=== PATIENT | male | born 1950 | race Caucasian/White ===

== ENCOUNTER → 2020-01-13 12:48 | Outpatient (CLI) | payer OTHER | END | disposition home or self-care (01) | LOC: LAB 12:48 | PROVIDERS: ATTEND Radiology Diagnostic Radiology | DX: N20.0 Calculus of kidney (principal) ==

== ENCOUNTER 2020-01-14 07:15 | Outpatient (CLI) | payer OTHER | END 2020-01-14 07:24 | disposition home or self-care (01) | LOC: TOM 07:15 | DX: R31.29 Other microscopic hematuria (principal); N39.0 Urinary tract infection, site not specified; R10.84 Generalized abdominal pain | CPT/HCPCS: 74177; Q9965 ==

== ENCOUNTER 2020-09-04 15:16 | Outpatient (CLI) | payer OTHER | END 2020-09-04 15:20 | disposition home or self-care (01) | LOC: LAB 15:16 | DX: U07.1 COVID-19 (principal); Z20.828 Contact with and (suspected) exposure to other viral communicable diseases; R05 Cough ==

== ENCOUNTER 2020-12-05 10:22 | Outpatient (CLI) | payer OTHER | END 2020-12-05 10:30 | disposition home or self-care (01) | LOC: RAD 10:22 | PROVIDERS: ATTEND Orthopaedic Surgery Sports Medicine | DX: M75.51 Bursitis of right shoulder (principal); M75.52 Bursitis of left shoulder ==

== ENCOUNTER → 2021-01-17 08:00 | Outpatient (CLI) | payer OTHER | END | disposition home or self-care (01) | LOC: PPH VACUNA 08:00 | PROVIDERS: ATTEND Emergency Medicine Pediatric Emergency Medicine | DX: Z23 Encounter for immunization (principal) ==

== ENCOUNTER 2021-08-14 08:00 | Outpatient (CLI) | payer OTHER | END 2021-08-14 08:30 | disposition home or self-care (01) | LOC: PPH VACUNA 08:00 | PROVIDERS: ATTEND Emergency Medicine Pediatric Emergency Medicine | DX: Z23 Encounter for immunization (principal) ==

== ENCOUNTER 2021-08-16 08:55 | Outpatient (CLI) | payer OTHER | END 2021-08-16 08:57 | disposition home or self-care (01) | LOC: RAD 08:55 | PROVIDERS: ATTEND Family Medicine | DX: M54.2 Cervicalgia (principal) ==

== ENCOUNTER 2022-02-01 12:19 | Outpatient (CLI) | payer OTHER | END 2022-02-01 12:29 | disposition home or self-care (01) | LOC: PPH VACUNA 12:19 | PROVIDERS: ATTEND Emergency Medicine Pediatric Emergency Medicine | DX: Z23 Encounter for immunization (principal) ==

== ENCOUNTER 2022-10-11 | Outpatient (CLI) | payer OTHER | END 2022-10-11 00:15 | disposition home or self-care (01) | LOC: PPH VACUNA | PROVIDERS: ATTEND Emergency Medicine Pediatric Emergency Medicine | DX: Z23 Encounter for immunization (principal) ==

== ENCOUNTER 2022-11-15 11:02 | Outpatient (CLI) | payer OTHER | END 2022-11-15 11:15 | disposition home or self-care (01) | LOC: RAD 11:02 | PROVIDERS: ATTEND Orthopaedic Surgery Sports Medicine | DX: Z96.612 Presence of left artificial shoulder joint (principal) ==

== ENCOUNTER 2024-08-14 18:16 | Emergency (ER) | payer OTHER ==
[~2024-08-14] VITALS: Ht 170.2 cm; Wt 81.2 kg
[2024-08-14] MEDS ORDERED: ECOTRIN81 MG (18:23)
[2024-08-14] MEDS ORDERED: DICLOFENAC POTA50 MG PO (18:23)
[2024-08-14] MEDS ORDERED: ZETIA10 MG (18:25)
[2024-08-14] MEDS ORDERED: LIPITOR40 M1 PO (18:25)
[2024-08-14] MEDS ORDERED: CEFTRIAXONE SODIUM 2,000 MG VIAL IV ONE (19:30)
[2024-08-14] MEDS ORDERED: CEFTRIAXONE SODIUM 2,000 MG VIAL ONE (19:51)
[2024-08-14 20:01] LABS: HEMATOCRIT 45.1 % (39.0-48.0); HEMOGLOBIN 15.6 g/dL (13-16.00); MEAN CORPUSCULAR HEMOGLOBIN 31.4 pg (27.00-32.0); MEAN CORPUSCULAR HGB CONC 34.6 g/dl (32.0-36.0); PLATELET COUNT 164 K/uL (150-450); RED BLOOD COUNT 4.96 M/uL (4.00-6.00); RED CELL DISTRIBUTION WIDTH 14.2 % (11.5-14.5)
[2024-08-14 20:09] LABS: URINE APPEARANCE Cloudy; URINE BILIRRUBIN Small (NEGATIVE); URINE BLOOD Negative; URINE COLOR Dark Yellow; URINE GLUCOSE Negative (NEGATIVE); URINE KETONE Trace (NEGATIVE); URINE LEUKOCYTE Trace; URINE NITRATE Negative; URINE PROTEIN 30 (NEGATIVE)
[2024-08-14 20:12] LABS: URINE BACTERIA 123.6 uL (0.0-1933); URINE EPITHELIAL CELLS 51.1 uL (0.0-38.8); URINE RBC 16.3 uL (0.0-20.8); URINE WBC 29.2 uL (0.0-23.2)
[2024-08-14 20:28] LABS: ALBUMIN 3.5 gm/dL (3.4-5.0); BILIRUBIN TOTAL 0.82 mg/dL (0.3-1.2); CALCIUM 9.3 mg/dL (8.5-10.1); CREATININE SERUM 1.91 mg/dL (0.70-1.30); GFR 34.81; GLOBULINA 4.4 G/DL (2.4-3.5); POTASSIUM 3.92 mEq/L (3.5-5.1); TOTAL PROTEIN 7.9 gm/dL (6.4-8.2)
[2024-08-14 20:44] LABS: URINE CAST > 21.83 uL (0.0-1.40)
== END 2024-08-14 21:18 | disposition home or self-care (01) ==
LOC: ER 18:17
PROVIDERS: Emergency Medicine
DX: N39.0 Urinary tract infection, site not specified (principal); L03.115 Cellulitis of right lower limb; I10 Essential (primary) hypertension
CPT/HCPCS: 36415; 96365; 99282; J0696

== ENCOUNTER 2024-08-16 20:01 | Inpatient (IN) | payer OTHER ==
[~2024-08-16] VITALS: Ht 170.2 cm; Wt 80.7 kg
[~2024-08-16 20:01] MED LIST: DICLOFENAC POTA50 MG PO; ECOTRIN81 MG; LIPITOR40 M1 PO; ZETIA10 MG
[2024-08-16] MEDS ORDERED: VANCOMYCIN HCL 1,000 MG VIAL IV ONE (20:45)
[2024-08-16] MEDS ORDERED: KETOROLAC TROMETHAMINE 30 MG VIAL IV ONE (20:45)
[2024-08-16] MEDS ORDERED: 0.9 % SODIUM CHLORIDE 1,000 ML IV SCH ×2 (20:45→22:45)
[2024-08-16] MEDS ORDERED: KETOROLAC TROMETHAMINE 30 MG VIAL ONE (20:50)
[2024-08-16] MEDS ORDERED: VANCOMYCIN HCL 1,000 MG VIAL ONE (20:50)
[2024-08-16 21:19] LABS: ERYTHROCYTE SEDIMENTATION RATE 57 mm/hr
[2024-08-16 21:22] LABS: HEMOGLOBIN 13.6 g/dL (13-16.00); MEAN CELL VOLUME 91.4 fL (80.0-100.00); MEAN CORPUSCULAR HGB CONC 33.9 g/dl (32.0-36.0); PLATELET COUNT 200 K/uL (150-450); RED BLOOD COUNT 4.38 M/uL (4.00-6.00); RED CELL DISTRIBUTION WIDTH 13.6 % (11.5-14.5)
[2024-08-16 21:35] LABS: D DIMER 3.65 MG/L; PARTIAL THROMBOPLASTIN TIME 27.4 SECONDS (22.0-34.0)
[2024-08-16 21:40] LABS: ALBUMIN 2.8 gm/dL (3.4-5.0); BILIRUBIN TOTAL 0.39 mg/dL (0.3-1.2); CREATININE SERUM 1.01 mg/dL (0.70-1.30); GFR 72.61; GLOBULINA 4.5 G/DL (2.4-3.5); POTASSIUM 3.4 mEq/L (3.5-5.1); TOTAL PROTEIN 7.3 gm/dL (6.4-8.2)
[2024-08-16 21:53] LABS: C-REACTIVE PROTEIN 11.9 MG/DL (0.00-0.29)
[2024-08-16 21:55] LABS: INR 0.96; PROTHROMBIN TIME 10.5 SECONDS (9.0-11.5)
[2024-08-16] MEDS ORDERED: CEFTRIAXONE SODIUM 2,000 MG in 0.9 % SODIUM CHLORIDE 100 ML IV SCH (22:41)
[2024-08-16] MEDS ORDERED: ACETAMINOPHEN 500 MG GEL..CAP PO PRN (22:45)
[2024-08-16] MEDS ORDERED: POTASSIUM BICARBONATE/CIT AC 25 MEQ TABLET.EFF PO ONE (22:45)
[2024-08-17] MEDS ORDERED: VANCOMYCIN HCL 1,000 MG VIAL IV SCH (09:00)
[2024-08-17] MEDS ORDERED: ENOXAPARIN SODIUM 40 MG/0.4 ML SYRINGE SUBCUTANEO SCH (09:00)
[2024-08-17] MEDS ORDERED: ATORVASTATIN CALCIUM 40 MG TABLET PO SCH (09:00)
[2024-08-17] MEDS ORDERED: FAMOTIDINE/PF 20 MG in 0.9 % SODIUM CHLORIDE 8 ML IV PUSH SCH (09:00)
[2024-08-17 09:29] VITALS: BP 95/60; O2SAT 94
[2024-08-17 11:46] LABS: PH,URINE 5.5 (5.0-8.0); URINE APPEARANCE Cloudy; URINE BILIRRUBIN Negative (NEGATIVE); URINE BLOOD Negative; URINE COLOR Dark Yellow; URINE GLUCOSE Negative (NEGATIVE); URINE KETONE Trace (NEGATIVE); URINE LEUKOCYTE Negative; URINE NITRATE Negative
[2024-08-17 11:50] LABS: URINE BACTERIA 88.1 uL (0.0-1933); URINE CAST 2.65 uL (0.0-1.40); URINE EPITHELIAL CELLS 31.8 uL (0.0-38.8); URINE RBC 13.8 uL (0.0-20.8); URINE WBC 10.4 uL (0.0-23.2)
[2024-08-17 12:04] LABS: URINE MUCUS MODERATE; URINE PROTEIN 100 (NEGATIVE)
[2024-08-17 16:32] VITALS: BP 116/74; O2SAT 98
[2024-08-17] MEDS ORDERED: LINEZOLID 600 MG TABLET PO SCH (17:00)
[2024-08-17] MEDS ORDERED: LACTOBACILLUS ACIDOPHILUS 1 CAP CAP PO SCH (17:00)
[2024-08-18 02:35] VITALS: BP 107/74; O2SAT 96
[2024-08-18 08:17] VITALS: BP 101/56
[2024-08-18 08:32] LABS: HEMATOCRIT 35.8 % (39.0-48.0); HEMOGLOBIN 12.3 g/dL (13-16.00); MEAN CELL VOLUME 90.4 fL (80.0-100.00); MEAN CORPUSCULAR HGB CONC 34.3 g/dl (32.0-36.0); PLATELET COUNT 225 K/uL (150-450); RED BLOOD COUNT 3.96 M/uL (4.00-6.00); RED CELL DISTRIBUTION WIDTH 14.2 % (11.5-14.5)
[2024-08-18 09:16] LABS: ALBUMIN 2.4 gm/dL (3.4-5.0); BILIRUBIN TOTAL 0.45 mg/dL (0.3-1.2); CALCIUM 8.6 mg/dL (8.5-10.1); CREATININE SERUM 0.82 mg/dL (0.70-1.30); GFR 92.35; GLOBULINA 3.2 G/DL (2.4-3.5); MAGNESIUM 2.2 mg/dL (1.8-2.4); POTASSIUM 4.32 mEq/L (3.5-5.1); TOTAL PROTEIN 5.6 gm/dL (6.4-8.2)
[2024-08-18 09:17] LABS: C-REACTIVE PROTEIN 5.44 MG/DL (0.00-0.29)
[2024-08-18 16:50] VITALS: BP 105/50; O2SAT 97
[2024-08-18] MEDS ORDERED: FAMOtidine 20 MG TABLET PO SCH (21:00)
[2024-08-19 02:19] VITALS: BP 110/68; O2SAT 96
[2024-08-19 08:57] VITALS: BP 130/78; O2SAT 96
[2024-08-19 18:31] VITALS: BP 138/75; O2SAT 95
[2024-08-20 01:42] VITALS: BP 112/72; O2SAT 95
[2024-08-20 07:17] LABS: HEMATOCRIT 33.9 % (39.0-48.0); HEMOGLOBIN 11.6 g/dL (13-16.00); MEAN CELL VOLUME 90.6 fL (80.0-100.00); MEAN CORPUSCULAR HEMOGLOBIN 31.1 pg (27.00-32.0); MEAN CORPUSCULAR HGB CONC 34.3 g/dl (32.0-36.0); PLATELET COUNT 320 K/uL (150-450); RED BLOOD COUNT 3.74 M/uL (4.00-6.00); RED CELL DISTRIBUTION WIDTH 13.8 % (11.5-14.5)
[2024-08-20 07:50] LABS: ALBUMIN 2.3 gm/dL (3.4-5.0); BILIRUBIN TOTAL 0.32 mg/dL (0.3-1.2); CALCIUM 8.2 mg/dL (8.5-10.1); CREATININE SERUM 0.76 mg/dL (0.70-1.30); GFR 100.82; GLOBULINA 2.9 G/DL (2.4-3.5); MAGNESIUM 1.9 mg/dL (1.8-2.4); PHOSPHOROUS 3.6 mg/dL (2.5-4.9); POTASSIUM 4.11 mEq/L (3.5-5.1); TOTAL PROTEIN 5.2 gm/dL (6.4-8.2)
[2024-08-20 07:52] LABS: C-REACTIVE PROTEIN 2.52 MG/DL (0.00-0.29)
[2024-08-20 08:34] VITALS: BP 139/72; O2SAT 98
[2024-08-20] MEDS ORDERED: KETOROLAC TROMETHAMINE 30 MG VIAL IV PRN (14:15)
[2024-08-20 17:50] VITALS: BP 135/75; O2SAT 97
[2024-08-20] MEDS ORDERED: PIPERACILLIN/TAZOBACTAM SODIUM 3.375 GM in DEXTROSE 5 % IN WATER 100 ML IV SCH (18:00)
[2024-08-21 02:23] VITALS: BP 127/74; O2SAT 95
[2024-08-21 09:55] VITALS: BP 147/81; O2SAT 99
[2024-08-21 18:12] VITALS: BP 106/61; O2SAT 97
[2024-08-22 03:53] VITALS: BP 144/79; O2SAT 95
[2024-08-22 09:13] VITALS: BP 117/70; O2SAT 98
[2024-08-22 09:22] LABS: HEMATOCRIT 31.1 % (39.0-48.0); HEMOGLOBIN 10.7 g/dL (13-16.00); MEAN CORPUSCULAR HGB CONC 34.5 g/dl (32.0-36.0); PLATELET COUNT 368 K/uL (150-450); RED BLOOD COUNT 3.46 M/uL (4.00-6.00); RED CELL DISTRIBUTION WIDTH 13.9 % (11.5-14.5)
[2024-08-22 09:46] LABS: ALBUMIN 2.2 gm/dL (3.4-5.0); BILIRUBIN TOTAL 0.41 mg/dL (0.3-1.2); CREATININE SERUM 0.79 mg/dL (0.70-1.30); GFR 96.41; GLOBULINA 2.8 G/DL (2.4-3.5); MAGNESIUM 1.9 mg/dL (1.8-2.4); PHOSPHOROUS 3.4 mg/dL (2.5-4.9); POTASSIUM 3.93 mEq/L (3.5-5.1)
[2024-08-22 09:47] LABS: C-REACTIVE PROTEIN 1.32 MG/DL (0.00-0.29)
[2024-08-22 17:59] VITALS: BP 131/71; O2SAT 96
[2024-08-22] MEDS ORDERED: KETOROLAC TROMETHAMINE 30 MG VIAL IV SCH (18:00)
[2024-08-23 03:47] VITALS: BP 155/72; O2SAT 95
[2024-08-23 10:14] VITALS: BP 129/81; O2SAT 96
[2024-08-23 18:31] VITALS: BP 121/74
[2024-08-24 01:35] VITALS: BP 123/73; O2SAT 98
[2024-08-24 09:22] VITALS: BP 103/64; O2SAT 95
[2024-08-24 16:59] VITALS: BP 99/56; O2SAT 97
[2024-08-25 02:55] VITALS: BP 105/59; O2SAT 96
[2024-08-25 10:03] VITALS: BP 134/80
[2024-08-25 18:05] VITALS: BP 141/85; O2SAT 97
[2024-08-26 01:13] VITALS: BP 148/83
[2024-08-26 09:09] LABS: HEMATOCRIT 32.8 % (39.0-48.0); MEAN CELL VOLUME 92.1 fL (80.0-100.00); MEAN CORPUSCULAR HEMOGLOBIN 30.9 pg (27.00-32.0); MEAN CORPUSCULAR HGB CONC 33.5 g/dl (32.0-36.0); PLATELET COUNT 391 K/uL (150-450); RED BLOOD COUNT 3.56 M/uL (4.00-6.00); RED CELL DISTRIBUTION WIDTH 13.6 % (11.5-14.5)
[2024-08-26 09:23] VITALS: BP 133/77; O2SAT 95
[2024-08-26 09:35] LABS: ALBUMIN 2.5 gm/dL (3.4-5.0); BILIRUBIN TOTAL 0.48 mg/dL (0.3-1.2); CALCIUM 8.5 mg/dL (8.5-10.1); CREATININE SERUM 0.91 mg/dL (0.70-1.30); GFR 81.9; GLOBULINA 2.9 G/DL (2.4-3.5); PHOSPHOROUS 3.4 mg/dL (2.5-4.9); POTASSIUM 4.35 mEq/L (3.5-5.1); TOTAL PROTEIN 5.4 gm/dL (6.4-8.2)
[2024-08-26 09:36] LABS: C-REACTIVE PROTEIN 0.95 MG/DL (0.00-0.29)
[2024-08-26 17:47] VITALS: BP 108/66; O2SAT 97
[2024-08-27 01:16] VITALS: BP 124/63
[2024-08-27 08:01] VITALS: BP 130/67; O2SAT 95
[2024-08-27] MEDS ORDERED: SILVER SULFADIAZINE 50 GM,ZINC OXIDE 30 GM TOP SCH (17:00)
[2024-08-27 17:35] VITALS: BP 151/93; O2SAT 96
[2024-08-27 22:14] VITALS: BP 149/83
[2024-08-28 00:39] VITALS: BP 135/78
[2024-08-28 08:34] VITALS: BP 111/60
== END 2024-08-28 12:59 | disposition home or self-care (01) | DRG 603 ==
LOC: ER 20:02 → SEC-K 22:43 → MEDJ 22:43 → MEDI 08-17 01:18 → MEDJ 08-17 05:18
PROVIDERS: General Practice; Internal Medicine Infectious Disease; ADMIT Internal Medicine; ATTEND Internal Medicine
PROC: B54CZZZ Ultrasonography of Left Lower Extremity Veins (ICD-10-PCS; principal; 2024-08-16)
PROC: B53BZZZ Magnetic Resonance Imaging (MRI) of Right Lower Extremity Veins (ICD-10-PCS; 2024-08-19)
DX: L03.115 Cellulitis of right lower limb (principal); A46 Erysipelas
CPT/HCPCS: 73722